=== PATIENT | female | born 1965 | race African-American/Black ===

== ENCOUNTER 2017-10-08 18:50 | Day surgery (SDC) | payer OTHER ==
[~2017-10-08] VITALS: Ht 182.9 cm; Wt 190.2 kg
[~2017-10-08 18:50] MED LIST: ATORVASTATIN CA80 MG PO; BACTRIM,SEPT1 TABLET PO; CARVEDILOL12.5 MG PO; CARVEDILOL25 MG PO; CHANTIX1 MG PO; CIPRO500 MG PO; CYCLOBENZAPRINE10 MG PO; DILTIAZEM 24HR240 MG PO; ERGOCALCIF50000 UNIT PO; FLEXERIL10 MG PO; GABAPENTIN300 MG PO; LANTUS; LANTUS 10100 UNITS/ SC; LIDOCAINE700 MG TD; LISINOPRIL40 MG PO; METFORMIN HCL1000 MG PO; METFORMIN HCL500 M1 PO; NICOTINE PATCH1 EAC1 TD; NOVOLOG; NOVOLOG 10100 UNITS/ SC; OXYCODONE; OXYCODONE-APAP1 EAC6 PO; PERCOCET 5/31 TABLET PO; PERCOCET 7.51 TABLET PO; SIMVASTATIN20 MG PO; SKELAXIN800 MG PO; SPIRONOLACTONE50 MG PO; TOPIRAMATE100 MG PO; TRAZODONE HCL100 MG PO; ZESTRIL,PRINIVI40 MG PO; ZOLPIDEM TARTRA10 MG PO
[2017-10-08 20:42] LABS: HEMATOCRIT 35.6 % (36.0-46.0); HEMOGLOBIN 11.6 G/DL (11.9-15.5); MCH 26.9 PG (29.0-34.0); MCHC 32.6 G/DL (30.0-36.0); MCV 82.6 FL (83-99); PLATELET COUNT 480 K/uL (156-360); RBC DIS.WIDTH-CV 13.3 % (11.8-14.6); RBC DIS.WIDTH-SD 40.3 % (39-53); RED BLOOD COUNT 4.31 M/uL (3.80-5.20); WHITE BLOOD COUNT 12.7 K/uL (4.1-10.2)
[2017-10-08 20:53] LABS: CHLORIDE 98 mEq/L (99-109); POTASSIUM 4.6 mEq/L (3.7-5.4); SODIUM 133 mEq/L (136-147)
[2017-10-08 20:55] LABS: GLUCOSE 187 mg/dL (70-99)
[2017-10-08 20:59] LABS: GFR ESTIMATE (CALCULATED) > 59 mL/min/
[2017-10-08 21:00] LABS: UREA NITROGEN (BUN) 18 mg/dL (9-23)
[2017-10-08] MEDS ORDERED: HUMULIN R500 UNITS/ SC ×3 (22:47→22:49)
[2017-10-08 23:06] LABS: QUANTITATIVE HCG < 4.0 MIU/ML
[2017-10-09 01:56] VITALS: BP 110/64
[2017-10-09 04:19] VITALS: BP 108/60
[2017-10-09 08:08] LABS: HEMATOCRIT 35.2 % (36.0-46.0); MCH 26.3 PG (29.0-34.0); MCHC 31.3 G/DL (30.0-36.0); MCV 84.2 FL (83-99); PLATELET COUNT 484 K/uL (156-360); RBC DIS.WIDTH-CV 13.5 % (11.8-14.6); RBC DIS.WIDTH-SD 41.8 % (39-53); RED BLOOD COUNT 4.18 M/uL (3.80-5.20)
[2017-10-09 08:33] LABS: CHLORIDE 99 MEQ/L (99-109); CREATININE 1.2 MG/DL (0.6-1.3); GFR ESTIMATE (CALCULATED) > 59 mL/min/; GLUCOSE 169 mg/dL (70-99); POTASSIUM 4.6 MEQ/L (3.7-5.4); SODIUM 134 MEQ/L (136-147); UREA NITROGEN (BUN) 21 mg/dL (9-23)
[2017-10-09 08:40] VITALS: BP 128/77
[2017-10-09] MEDS ORDERED: CLEOCIN300 MG PO (09:05)
[2017-10-09] MEDS ORDERED: PERCOCET 5/31 TABLET PO ×2 (09:05→09:19)
[2017-10-09] MEDS ORDERED: COLACE100 MG PO (09:05)
[2017-10-09] MEDS ORDERED: CIPRO500 MG PO (09:05)
[2017-10-09 10:06] LABS: HEMOGLOBIN A1c (GLYCOHEMOGLOB) 8.1 % (Below 5.7)
== END 2017-10-09 10:05 | disposition home or self-care (01) ==
LOC: EME 18:50 → RME 18:50 → SDC 23:41 → 2EAST 10-09 00:22 → ENRESERV 10-09 00:35 → 2EAST 10-09 10:05
PROVIDERS: Nurse Practitioner Family; Surgery
PROC: 0H9UXZZ (ICD-10-PCS; principal; 2017-10-09)
DX: N61.1 Abscess of the breast and nipple (principal); E11.9 Type 2 diabetes mellitus without complications; E66.01 Morbid (severe) obesity due to excess calories; Z68.43 Body mass index [BMI] 50.0-59.9, adult; I10 Essential (primary) hypertension; Z88.0 Allergy status to penicillin; E78.5 Hyperlipidemia, unspecified; G47.33 Obstructive sleep apnea (adult) (pediatric); F17.210 Nicotine dependence, cigarettes, uncomplicated; F12.90 Cannabis use, unspecified, uncomplicated; Z79.4 Long term (current) use of insulin
CPT/HCPCS: 71260; 76641; 80048; 82948; 83036; 83605; 84702; 85027; 87040; 87205; 93005; 99281; 99285; G0378; J1650; J1815; J1885; J2250; J2270; J2405; J7120; S0020

== ENCOUNTER 2017-11-21 19:17 | Observation (INO) | payer OTHER ==
[~2017-11-21] VITALS: Ht 182.9 cm; Wt 185.4 kg
[~2017-11-21 19:17] MED LIST changes: +CLEOCIN300 MG PO; +COLACE100 MG PO; +HUMULIN R500 UNITS/ SC
[2017-11-21 20:11] LABS: HEMOGLOBIN 11.5 G/DL (11.9-15.5); MCH 28.2 PG (29.0-34.0); MCHC 33.8 G/DL (30.0-36.0); MCV 83.3 FL (83-99); PLATELET COUNT 338 K/uL (156-360); RBC DIS.WIDTH-CV 14.7 % (11.8-14.6); RBC DIS.WIDTH-SD 44.5 % (39-53); RED BLOOD COUNT 4.08 M/uL (3.80-5.20); WHITE BLOOD COUNT 9.8 K/uL (4.1-10.2)
[2017-11-21 20:21] LABS: CHLORIDE 105 mEq/L (99-109); POTASSIUM 3.9 mEq/L (3.7-5.4); SODIUM 136 mEq/L (136-147)
[2017-11-21 20:23] LABS: GLUCOSE 172 mg/dL (70-99)
[2017-11-21 20:27] LABS: CREATININE 0.8 mg/dL (0.6-1.3); GFR ESTIMATE (CALCULATED) > 59 mL/min/
[2017-11-21 20:28] LABS: UREA NITROGEN (BUN) 10 mg/dL (9-23)
[2017-11-21] MEDS ORDERED: METFORMIN HCL500 M1 PO (20:45)
[2017-11-21] MEDS ORDERED: CLEOCIN300 MG PO (20:46)
[2017-11-21] MEDS ORDERED: PERCOCET 5/31 TABLET PO (20:46)
[2017-11-21 23:22] VITALS: BP 134/65
[2017-11-22 04:25] VITALS: BP 146/77
[2017-11-22 08:28] VITALS: BP 130/68
== END 2017-11-22 11:55 | disposition home or self-care (01) ==
LOC: EME 19:17 → EDOF 20:19 → 2EAST 20:19 → ENRESERV 20:24 → 2EAST 21:50
PROVIDERS: Nurse Practitioner Family; Surgery
PROC: 0H9U0ZZ Drainage of Left Breast, Open Approach (ICD-10-PCS; principal; 2017-11-21)
DX: N61.1 Abscess of the breast and nipple (principal); B95.2 Enterococcus as the cause of diseases classified elsewhere; E11.9 Type 2 diabetes mellitus without complications; I10 Essential (primary) hypertension; E66.01 Morbid (severe) obesity due to excess calories; Z68.43 Body mass index [BMI] 50.0-59.9, adult; E78.5 Hyperlipidemia, unspecified; G47.33 Obstructive sleep apnea (adult) (pediatric); F17.210 Nicotine dependence, cigarettes, uncomplicated; F12.90 Cannabis use, unspecified, uncomplicated; Z88.0 Allergy status to penicillin; Z79.4 Long term (current) use of insulin
CPT/HCPCS: 76642; 80048; 82948; 85027; 87040; 87070; 87077; 87205; 88304; G0378; J0131; J0330; J0360; J0744; J1100; J1650; J1815; J1885; J2405; J3010; J7120; S0020; S0030